=== PATIENT | male | born 1945 | race Asian ===

== ENCOUNTER → 2017-06-01 | Day surgery (SDC) | payer OTHER, MEDICAID ==
--- NOTE | 2017-06-04 02:52 | GOP ---
[f rep st] OPERATIVE REPORT DATE OF PROCEDURE: 06/01/2017 SURGEON Caren Rockwell MD PREOPERATIVE DIAGNOSES: Elevated prostate-specific antigen, abnormal digital rectal exam. POSTOPERATIVE DIAGNOSES: Elevated prostate-specific antigen, abnormal digital rectal exam. PROCEDURE PERFORMED: Transrectal guided biopsy of the prostate. ANESTHESIA: 1% local lidocaine. SPECIMENS: Twelve prostate core biopsies. COMPLICATIONS: None. The patient tolerated the procedure well. FINDINGS: Mildly enlarged gland with some hypoechoic area noted on the left prostate. INDICATIONS FOR PROCEDURE: The patient came to me with an elevated PSA. Of note was an elevated PSA of 37. His prostate was abnormal on rectal exam on the left base. Recommended next step in evaluation was an ultrasound-guided prostate biopsy. DESCRIPTION OF PROCEDURE: The patient was seen in my office for an IM injection of gentamicin and then brought down to the [facility] radiology department at the [facility] location. A time- out was performed and consent was received. I did discuss in detail that after the biopsy if he develops any fevers and chills or feelings of sickness over the next week to 2 weeks, he is to call me and discuss his symptoms. Also, he received gentamicin antibiotic IM as well as oral ciprofloxacin before he left the radiology department today for post biopsy procedure infection prophylaxis. He was placed in a left lateral decubitus position. A digital rectal exam was performed and the abnormality on the left side was noted as discussed above. The probe was then gently inserted transrectally, and 10 mL of lidocaine 1% was instilled on each side of the prostate for a periprostatic block. Measurements of the prostate were then taken. Measurements were as follows: His prostate volume was 55 g (1.5 x 3.9 x 5.3 cm). I then proceeded to do 12 core biopsies, ultrasound guided, 6 on the left gland and 6 on the right. These six were made up of 2 at the base, 2 at the mid and 2 at the apex of the prostate. He tolerated this procedure well, and we verified that all prostate biopsies were of good quality, and they were. The probe was removed. Another manual rectal exam was performed and there was no bleeding. He then sat up and felt well. He did take a ciprofloxacin oral antibiotic, and was asked to void prior to leaving the [facility]. I also discussed with him that there is a risk of blood in the urine, ejaculate and stool for up to 1 month after the procedure, and he understood. /[id number]/MODL MTDD
== END | disposition home or self-care (01) ==
LOC: BMCIMAGING 07:35
PROVIDERS: ATTEND Urology
PROC: 0VB07ZX Excision of Prostate, Via Natural or Artificial Opening, Diagnostic (ICD-10-PCS; principal; 2017-06-01)
PROC: BV44ZZZ Ultrasonography of Scrotum (ICD-10-PCS; 2017-06-01)
DX: R97.20 Elevated prostate specific antigen [PSA] (principal); N40.0 Benign prostatic hyperplasia without lower urinary tract symptoms

== ENCOUNTER → 2017-06-06 | Outpatient (CLI) | payer OTHER, MEDICAID ==
[~2017-06-06] MED LIST: IOPAMIDOL (ISOVUE-300) 100 ML BTL ONE
== END ==
LOC: FIMAGING 10:48
PROVIDERS: ATTEND Urology
DX: I72.3 Aneurysm of iliac artery (principal); N40.0 Benign prostatic hyperplasia without lower urinary tract symptoms; R97.20 Elevated prostate specific antigen [PSA]
CPT/HCPCS: 74177; 78306; A9503; Q9967